=== PATIENT | female | born 1955 | race Caucasian/White ===

== ENCOUNTER 2020-07-28 21:16 | Emergency (ER) | payer BC, SELFPAY ==
[2020-07-28 21:11] VITALS: BP 147/81; PULSE 64; RESP 20; TEMP 36.6; O2SAT 97
--- NOTE | 2020-07-28 21:18 | ECG_ITS ---
Measurements Intervals [place] Rate: 64 P: 68 [place]: 138 QRS: 54 QRSD: 102 T: 73 QT: 417 QTc: 432 Interpretive Statements SINUS RHYTHM POSSIBLE LEFT ATRIAL ENLARGEMENT INCOMPLETE RIGHT BUNDLE BRANCH BLOCK BASELINE ARTIFACT- I, II, III, AVR, AVL, AVF BORDERLINE ECG Electronically Signed On 07-29-2020 8:05:54 CDT by Heber Casper D.O.
--- NOTE | 2020-07-28 22:26 | ED.GENADULT ---
HPI - General Adult General Chief complaint: Dizziness Stated complaint: dizzxiness Time Seen by Provider: 07/28/20 21:42 Source: patient and family History of Present Illness HPI narrative: Patient is 64 y/o female brought in for unresponsiveness. states that earlier today her leg were rubbery and she was dizzy and did not respond to him. He state that her condition might have been aggravated by some bad news. He states that she has history of anxiety. Currently she is awake, alert. She states that she has chronic leg pain. Related Data Allergies Allergy/AdvReac Type Severity Reaction Status Date / Time Penicillins Allergy Intermediate HIVES Verified 01/08/19 09:25 Review of Systems Constitutional: Constitutional: Denies chills, Denies fever(s), Denies headache(s) and Denies weakness Eyes: Eyes: Denies blurry vision ENT: Denies headache(s) and Denies neck pain Cardiovascular: Cardiovascular: Denies chest pain and Denies dyspnea Respiratory: Respiratory: Denies cough and Denies dyspnea Gastrointestinal: Gastrointestinal: Denies abdominal pain, Denies diarrhea, Denies nausea and Denies vomiting Genitourinary: Genitourinary: Denies hematuria and Denies dysuria Musculoskeletal: Musculoskeletal: Denies back pain, Denies neck pain and Reports other (left leg pain) Neurologic: Reports dizziness, Reports syncope, Denies headache(s) and Denies weakness Exam Const: General: no acute distress and well developed Orientation/consciousness: oriented to person, oriented to place, oriented to time and patient oriented x3 HENMT: Head: normocephalic Ears: external ears normal General nose exam: Normal external nose present Eyes: General: appearance normal, both eyes and all related structures Conjunctivae: conjunctivae normal Neck: Neck: normal visual inspection and full ROM Chest: Chest palpation & inspection: normal inspection of the chest and no tenderness Resp: Effort & Inspection: normal respiratory effort Auscultation: clear to auscultation bilaterally Cardio: Rate: regular rate Rhythm: regular rhythm GI: GI Palp: No abdominal tenderness and Yes Soft to palpation Skin: General skin exam: normal color and turgor normal Neuro: General: oriented to person, oriented to place, oriented to time and patient oriented x3 Cranial nerves: Yes CN's II-XII intact bilaterally Cognition (Neuro): normal cognition Speech: normal speech Motor exam (neuro): 5/5 motor strength present throughout Sensory Exam: normal sensation Coordination: [id number] test normal Extrem: General: normal to inspection, full ROM and no pedal edema Psych: Appearance: grossly normal Mental Status: mental status grossly normal Affect: normal affect Course Reevaluation(s) Reevaluation #1: I advised patient to have labs drawn, head CT done. Patient refused everything. She states that she wants to go home. She is awake, alert and competent to make medical decision for herself. Date: 07/28/20 Vital Signs Vital signs: Vital Signs Temperature 36.6 C 07/28/20 21:11 Pulse Rate 64 07/28/20 21:11 Respiratory Rate 20 07/28/20 21:11 Blood Pressure 147/81 H 07/28/20 21:11 Pulse Oximetry 97 07/28/20 21:11 Temperature 36.7 C 07/28/20 22:28 Pulse Rate 70 07/28/20 22:28 Respiratory Rate 18 07/28/20 22:28 Blood Pressure 128/80 07/28/20 22:28 Pulse Oximetry 99 07/28/20 22:28 Medical Decision Making Vital Signs Vital Signs: Vital Signs Temperature 36.6 C 07/28/20 21:11 Pulse Rate 64 07/28/20 21:11 Respiratory Rate 20 07/28/20 21:11 Blood Pressure 147/81 H 07/28/20 21:11 Pulse Oximetry 97 07/28/20 21:11 Temperature 36.7 C 07/28/20 22:28 Pulse Rate 70 07/28/20 22:28 Respiratory Rate 18 07/28/20 22:28 Blood Pressure 128/80 07/28/20 22:28 Pulse Oximetry 99 07/28/20 22:28 ECG Data EKG #1: Attestation: I personally reviewed and interpreted this ECG as follows:
[2020-07-28 22:28] VITALS: BP 128/80; PULSE 70; RESP 18; TEMP 36.7; O2SAT 99
--- NOTE | 2020-07-28 22:29 | PC.NURSE ---
RN into room to draw labs. Pt and spouse state that she doesnt need to be here and is going to go home. Pt educated on risks of leaving before further testing, verbalized understanding. Pt IV line removed and assisted to wheelchair and then to car. Pt signed ama paperwork.
== END 2020-07-28 22:30 | disposition left against medical advice (07) ==
PROVIDERS: Emergency Provider Emergency Medicine; PCP Family Medicine
DX: R42 Dizziness and giddiness (principal); R55 Syncope and collapse; I45.10 Unspecified right bundle-branch block; R94.31 Abnormal electrocardiogram [ECG] [EKG]
CPT/HCPCS: 93005; 99283

== ENCOUNTER 2025-04-30 12:36 | Outpatient (CLI) | payer MEDICARE, OTHER, SELFPAY ==
--- NOTE | ~2025-04-30 | MR_ITS ---
EXAMINATION: MR sacrum wo con DATE: 04/30/2025 13:33 INDICATION: Sacral back pain. TECHNIQUE: Magnetic resonance imaging (MRI) of the sacrum and coccyx was performed without intravenou s contrast. Sequences included sagittal PD-weighted FS FSE, coronal oblique T2-weighted FS FSE, evy nal oblique T2-weighted FSE, coronal oblique T1-weighted FSE, oblique axial T2-weighted FS FSE and ob lique axial T1-weighted FSE. COMPARISON: None FINDINGS: Bone alignment is normal. Minimal subarticular cystic change at the sacral side of the inferior bilat eral sacroiliac joints which could be due to mild osteoarthritis for erosions in setting of a sacroil iitis. No tenosynovitis along the joint line or recesses of the bilateral sacralized joints. Moderate to severe lower lumbar spondylosis. 2-3 mm anterolisthesis L4 on L5 with severe bilateral facet oste oarthritis. Multiple diverticula without adjacent from trace stranding to suggest diverticulitis cristiano g the visualized sigmoid colon. IMPRESSION: 1. Symmetric mild bilateral sacroiliac osteoarthritis versus less likely sacroiliitis with a few tiny subarticular erosion versus cystlike change at the inferior aspect of the joint spaces but no signif icant synovitis. 2. Moderate to severe lower lumbar spondylosis including 2-3 mm anterolisthesis L4 on L5 severe bilat eral facet osteoarthritis. Reviewed, dictated and finalized at [facility]. IMPRESSION: 1. Symmetric mild bilateral sacroiliac osteoarthritis versus less likely sacroi liitis with a few tiny subarticular erosion versus cystlike change at the infer ior aspect of the joint spaces but no significant synovitis. 2. Moderate to severe lower lumbar spondylosis including 2-3 mm anterolisthesis L4 on L5 severe bilateral facet osteoarthritis.
--- NOTE | ~2025-04-30 | MR_ITS ---
MRI of the lumbar spine Clinical History: Radiculopathy Technique: Axial T2-weighted images, and sagittal T1-weighted, T2-weighted, and T2 fat-sat images wer e acquired. Findings: No fracture identified. There is 4 mm anterolisthesis of L4 over L5. No bone marrow signal abnormality seen. At L1-L2, there is no disc bulge or herniation. There is mild to moderate facet hypertrophy. No spina l canal stenosis. There is mild bilateral neural foraminal narrowing. At L2-L3, there is minimal disc bulge with moderate facet hypertrophy. No spinal canal stenosis. Ther e is mild bilateral neural foraminal narrowing. At L3-L4, there is minimal disc bulge with moderate to advanced facet arthropathy. No central canal s tenosis. There is mild bilateral neural foraminal narrowing. At L4-L5, there is diffuse disc bulge/uncovering with severe facet arthropathy. There is moderate spi nal canal stenosis/thecal sac compression. There is moderate to advanced bilateral neural foraminal n arrowing. L5-S1, there is minimal disc bulge with moderate facet hypertrophy. No spinal canal stenosis. There i s moderate to severe left neural foraminal narrowing. Right neural foramen preserved. Paravertebral soft tissues are unremarkable. Impression: Moderate to advanced degenerative spondylosis, with multilevel neural foraminal narrowing, as detaile d above. Additional moderate spinal canal stenosis at L4-L5. 4 mm anterolisthesis of L4 over L5. Reviewed, dictated and finalized at [facility]. Impression: Moderate to advanced degenerative spondylosis, with multilevel neural foraminal narrowing, as detailed above. Additional moderate spinal canal stenosis at L4- L5. 4 mm anterolisthesis of L4 over L5.
== END 2025-04-30 12:37 | disposition home or self-care (01) ==
LOC: GOSHIMG 12:37
PROVIDERS: PCP Physician Assistant; Visit Provider Physician Assistant
DX: M53.3 Sacrococcygeal disorders, not elsewhere classified (principal); G58.8 Other specified mononeuropathies; M47.896 Other spondylosis, lumbar region
CPT/HCPCS: 72148; 72195